=== PATIENT | female | born 1990 | race African-American/Black ===

== ENCOUNTER 2017-11-09 14:56 | Emergency (ER) | payer SELFPAY ==
[2017-11-09 15:24] LABS: Bilirubin Negative (Negative); Blood, Urine Negative (Negative); Clarity CLOUDY (Clear); Glucose, Urine (Dipstick) Negative (Negative); Leukocyte Moderate (Negative); Nitrite Negative (Negative); Protein, Urine (Dipstick) 30 mg/dL (Neg-Trace); Specific Gravity, Urine 1.033 (1.002-1.036)
[2017-11-09 15:26] LABS: Bacteria/HPF None Seen HPF (None Seen); Pathc Cast-AUWi Flag 1.01 (0-2.49); WBC/HPF 21-50 HPF (0-3)
[2017-11-09 15:37] LABS: Hyaline Casts/LPF 0-3 HYALINE CAST LPF (0-3 Hyaline)
[2017-11-09 15:58] LABS: Pregnancy Test - Urine (BHCG) Negative (Negative); Pregu Control Background? CLEAR/WHITE (CLR/WHITE); Pregu Control Bar Appear? YES (CONTROL BAR); Specific Gravity 1.033 (1.002-1.036)
== END 2017-11-09 16:15 | disposition home or self-care (01) ==
LOC: ERS 14:56
DX: N39.0 Urinary tract infection, site not specified (principal)
CPT/HCPCS: 81003; 81015; 81025; 99283

== ENCOUNTER 2018-08-31 09:08 | Emergency (ER) | payer SELFPAY ==
[2018-08-31 09:45] LABS: Bilirubin Negative (Negative); Blood, Urine Negative (Negative); Clarity CLEAR (Clear); Glucose, Urine (Dipstick) Negative (Negative); Leukocyte Trace (Negative); Nitrite Negative (Negative); Protein, Urine (Dipstick) Negative (Neg-Trace); Specific Gravity, Urine 1.028 (1.002-1.036); Urobilinogen 0.2 mg/dL (0.2-1.0); pH, Urine 6.5 (5.0-9.0)
[2018-08-31 09:47] LABS: Pregnancy Test - Urine (BHCG) POSITIVE (Negative); Pregu Control Background? CLEAR/WHITE (CLR/WHITE); Pregu Control Bar Appear? YES (CONTROL BAR); Specific Gravity 1.028 (1.002-1.036)
[2018-08-31 09:48] LABS: Bacteria/HPF None Seen HPF (None Seen); Hyaline Casts/LPF 0-3 HYALINE CAST LPF (0-3 Hyaline); Pathc Cast-AUWi Flag 0.14 (0-2.49); RBC/HPF 0-3 HPF (0-3); Squamous Epithelial 0-3 HPF (0-3)
--- NOTE | 2018-08-31 12:36 | ULT ---
TRANSVAGINAL PELVIC ULTRASOUND: HISTORY: Pelvic pain. COMPARISON: None. FINDINGS: The patient's hCG level is 1720. The uterus measures 9 x 5 x 5.8 cm. The endometrial thickness is 1 cm. The right ovary measures 3 x 1.8 x 2.3 cm. The left ovary measures 2.7 x 1.6 x 1.9 cm. Hypovascular flow to both ovaries. The uterus is retroverted. No intrauterine is appreciated. Small volume fluid in the cul-de-sac. IMPRESSION: of unknown location. No intrauterine is appreciated, although it would not expected at thi s low hCG level. Close follow-up hCG and ultrasound are recommended. POS: [facility]
== END 2018-08-31 12:38 | disposition home or self-care (01) ==
LOC: ERS 09:08
DX: O99.89 Other specified diseases and conditions complicating pregnancy, childbirth and the puerperium (principal); M54.5 Low back pain
CPT/HCPCS: 36415; 76856; 81003; 81015; 81025; 84702

== ENCOUNTER 2018-09-08 11:08 | Emergency (ER) | payer MEDICAID, OTHER ==
[2018-09-08 11:58] LABS: #Basophils 0.1 thou/uL (0.0-0.2); #Lymphocytes 2.4 thou/uL (1.20-3.40); #Monocytes 0.9 thou/uL (0.11-0.59); #Neutrophils 3.8 thou/uL (1.40-6.50); %Basophils 1.3 % (0.0-1.0); %Eosinophils 0.5 % (0.0-10.0); %Lymphocytes 33.6 % (21.0-51.0); %Monocytes 12.2 % (0.0-10.0); %Neutrophils 52.5 % (42.0-75.0); Mean Corpuscular HGB CONC 30.1 g/dL (32.0-36.0); Mean Corpuscular Hemoglobin 24.9 pg (27.0-31.0); Mean Corpuscular Volume 82.7 fL (78.0-98.0); Mean Platelet Volume 9.7 fL (7.4-10.4); Platelet Count 393 thou/uL (130-400); RBC Distribution Width 18.9 % (11.5-14.5); Red Blood Cell (RBC) Count 4.01 mill/uL (4.20-5.40); White Blood Cell (WBC) Count 7.2 thou/uL (4.8-10.8)
[2018-09-08 12:24] LABS: ALT (SGPT) 12 U/L (8-55); AST (SGOT) 18 U/L (5-34); Albumin 4.1 g/dL (3.5-5.0); Alkaline Phosphatase 44 U/L (40-150); Anion Gap 12 mmol/L (10-20); BUN (Urea Nitrogen) 10 mg/dL (7.0-18.7); Bilirubin, Total 0.2 mg/dL (0.2-1.2); Calc. Creatinine Clearance 0 mL/min (70-130); Calcium 9.4 mg/dL (7.8-10.44); Carbon Dioxide 24 mmol/L (22-29); Chloride 103 mmol/L (98-107); Estimated GFR-MDRD Greater than 90; Globulin 3.8 g/dL (2.4-3.5); Glucose 104 mg/dL (70-105); Lipase 8 U/L (8-78); Potassium 3.9 mmol/L (3.5-5.1); Protein, Total 7.9 g/dL (6.0-8.3); Sodium 135 mmol/L (136-145)
[2018-09-08] MEDS ORDERED: Ondansetron PF 4 MG/2 ML Vial ONE (12:45)
[2018-09-08] MEDS ORDERED: Rocuronium Bromide 10 MG/ML (10ML VIAL) ONE (12:45)
[2018-09-08] MEDS ORDERED: PROPOFOL 200 MG/20 ML VIAL ONE (12:45)
[2018-09-08] MEDS ORDERED: Glycopyrrolate 0.2 MG/ML 5 ML SYRINGE ONE (12:45)
[2018-09-08] MEDS ORDERED: Succinylcholine Chloride 20 MG/ML 10 ml SYRINGE FS ONE (12:45)
[2018-09-08] MEDS ORDERED: Dexamethasone 20 MG/5 ML VIAL ONE (12:45)
[2018-09-08] MEDS ORDERED: Lidocaine 1% PF 5 ML VIAL ONE (12:45)
[2018-09-08 13:33] LABS: Bilirubin Negative (Negative); Blood, Urine Negative (Negative); Clarity CLEAR (Clear); Glucose, Urine (Dipstick) Negative (Negative); Leukocyte Negative (Negative); Nitrite Negative (Negative); Protein, Urine (Dipstick) Negative (Neg-Trace); Specific Gravity, Urine 1.024 (1.002-1.036); pH, Urine 7.5 (5.0-9.0)
--- NOTE | 2018-09-08 15:04 | ULT ---
ULTRASOUND PELVIC TRANSVAGINAL DOPPLER: HISTORY: Pelvic pain. COMPARISON: Pelvic exam of 08/31/2018. TECHNIQUE: Real-time, sue scale, and color evaluation of the pelvis was performed by transabdominal and transva ginal approach. FINDINGS: There is no intrauterine . HCG level is 12,502. There is an abnormal mass in the right adn exa concerning for an ectopic . There is some hemorrhage within the cul-de-sac. Endometrial thickness is approximately a centimeter. The right ovary measures 3.6 x 2.3 x 2.3 cm and the left ovary measures 2.8 x 1.3 x 1.4 cm with adequ ate flow. IMPRESSION: Findings concerning for a right tubal ectopic with hemorrhage suggesting ruptured ectopic p regnancy. Bibi Caldwell notified of findings via telephone at 2:12 p.m. CODE NADYA POS: [facility]
[2018-09-08 15:15] LABS: #Lymphocytes 1.9 thou/uL (1.20-3.40); #Monocytes 0.6 thou/uL (0.11-0.59); #Neutrophils 8.7 thou/uL (1.40-6.50); %Basophils 0.4 % (0.0-1.0); %Lymphocytes 16.9 % (21.0-51.0); %Monocytes 5.4 % (0.0-10.0); %Neutrophils 77.2 % (42.0-75.0); Hemoglobin 10.4 g/dL (12.0-16.0); Mean Corpuscular HGB CONC 30.5 g/dL (32.0-36.0); Mean Corpuscular Volume 82.2 fL (78.0-98.0); Platelet Count 416 thou/uL (130-400); RBC Distribution Width 19.1 % (11.5-14.5); Red Blood Cell (RBC) Count 4.16 mill/uL (4.20-5.40); White Blood Cell (WBC) Count 11.3 thou/uL (4.8-10.8)
[2018-09-08] MEDS ORDERED: Bupivacaine HCl 0.5%/Epinephrine 1:200,000/PF 30 ml Vial ONE (16:28)
[2018-09-08] MEDS ORDERED: Midazolam HCl 2 mg/2 ml Vial ONE ×2 (16:29→16:49)
[2018-09-08] MEDS ORDERED: Fentanyl 250 MCG/5 ML VIAL ONE (16:29)
--- NOTE | 2018-09-09 02:12 | OP ---
DATE OF PROCEDURE: 09/08/2018 PREOPERATIVE DIAGNOSIS: Right ectopic . POSTOPERATIVE DIAGNOSIS: Right tubal . PROCEDURE PERFORMED: Diagnostic laparoscopy with right salpingectomy. ANESTHESIA: General. ESTIMATED BLOOD LOSS: 50 mL. URINE OUTPUT: 300 mL, clear at the end of the case. SPECIMEN: Right tube with products of conception. CONDITION: Stable. COMPLICATIONS: None. COUNTS: Correct. DESCRIPTION OF PROCEDURE: The patient is a 27-year-old female who presented to the emergency room with acute onset right lower quadrant pain and was diagnosed by ultrasound with an adnexal mass and no IUP with a beta quant of over 12,000, with concerns for ectopic . INSTITUTIONAL AIDE was consulted on the case. After reviewing the information present and discussing findings with the patient, recommendations were made for diagnostic laparoscopy for further evaluation and possible removal of right tube. Potential complications were discussed. The patient expressed understanding and desired to proceed. An informed written consent was provided. The patient was taken to the operating room where she was placed under general anesthesia and placed in dorsal lithotomy position in Earnest stirrups. She was prepared and draped in a normal sterile fashion. Attention was placed vaginally, where the cervix was identified with aid of an operative speculum. The cervix was grasped on the anterior lip with a single-tooth tenaculum and the uterus was sounded to 12 cm. An uterine manipulator was then inserted into the cervix and lower uterine segment, and grasped onto the anterior lip of the cervix. Attention was then placed abdominally. A 5-mm skin incision was made in the base of the umbilicus and about a 12-mm incision was made suprapubically in midline. A Veress needle was introduced into the abdomen with entry pressure at about 5 mmHg. Of note, there was about a 7-to 10-minute period where there was instrument failure and the insufflation machines were not working. Ultimately, this was resolved without any formal complication to the patient, though the case had already begun. Once the intraabdominal pressure was at 15 mmHg, a 5-mm port with trocar was then introduced into the umbilical site and correct placement was confirmed by laparoscopy. A 2nd 11-mm port with trocar was then introduced suprapubically under direct visualization and ultimately a 3rd port was introduced in a 5-mm skin incision, left lateral. The patient was placed in Trendelenburg. There was noted to be some blood in the cul-de-sac, about 50 mL estimated and a right tubal was fairly visible, not ruptured. There was some bleeding that appeared to have been stopped spontaneously coming from the end of the tube. Right ovary appeared normal. Left tube and ovary appeared normal and healthy. Given the amount of distortion of the right tube, decision was made to remove the tube with the aid of a LigaSure bipolar device. A salpingectomy was performed with care to remain along the inferior aspect of the tube along the mesosalpinx, leaving as much vascularity as possible for ovarian function. The tube was removed without difficulty and removed with an EndoCatch bag through the suprapubic port. Attention at this time was placed back into the posterior cul-de-sac where the cul-de-sac was then irrigated and the rest of the residual blood was removed as best as possible. Inspection of the surgical site revealed good hemostasis. At this point in time, the appendix and the liver were inspected and found to appear normal. Also appeared normal were the omentum and abdominal contents just inferior to the umbilical site camera. At this point in time, decision was made to complete the procedure and abdomen was deflated and the ports were removed. Care was taken to try to completely evacuate the abdomen with gas. Given the suprapubic fascia felt to be just 1 cm or less in diameter, decision was made not to place the stitch into the fascia itself and the skin was closed with 4-0 Monocryl at all 3 sites and then approximately 30 mL of local anesthetic was then used and followed by Dermabond. Attention was placed vaginally, where the uterine manipulator and single-tooth tenaculum were removed. The cervix was visually inspected and found to be hemostatic. The patient was extubated and transferred to recovery in stable condition. Job ID: [id number]
== END 2018-09-08 22:15 | disposition home or self-care (01) ==
LOC: ERS 11:08
DX: O00.90 Unspecified ectopic pregnancy without intrauterine pregnancy (principal); Z3A.01 Less than 8 weeks gestation of pregnancy
CPT/HCPCS: 36415; 76856; 80053; 81003; 83690; 84702; 85025; 86850; 86900; 86901; 88305; 96360; J0670; J1100; J2001; J2250; J2405; J2704; J3010